=== PATIENT | female | born 1945 | race Caucasian/White ===

== ENCOUNTER → 2017-04-29 | Outpatient (CLI) | payer MEDICARE, OTHER | END | disposition home or self-care (01) | LOC: GMAM 13:12 | PROVIDERS: ATTEND Family Medicine | DX: E03.9 Hypothyroidism, unspecified (principal); I10 Essential (primary) hypertension; R12 Heartburn; K21.0 Gastro-esophageal reflux disease with esophagitis ==

== ENCOUNTER → 2017-06-15 | Outpatient (CLI) | payer MEDICARE, OTHER ==
--- NOTE | 2017-06-16 08:07 | MRI ---
EXAM DESCRIPTION: Lumbar Spine w/o Contrast CLINICAL HISTORY: LUMBOSACRAL RADICULOPATHY left-sided COMPARISON: None Available. TECHNIQUE: MRI of the lumbar spine is performed according to our usual protocol with axial and sagittal multi sequence imaging. FINDINGS: MR of the lumbar spine demonstrates multilevel advanced disc degenerative changes with modest estimated four or 5 mm of retrolisthesis at the degenerative L2-3 level and four or 5 mm of anterolisthesis at the L4-5 level. Vertebral height is maintained. Rather marked fatty endplate changes on either side of the L2-3 disc level is present. The conus is positioned at the thoracolumbar junction without intradural or intramedullary abnormalities noted. Vertebral height is maintained. The retroperitoneal and paraspinous structures are essentially normal. Disc desiccation with normal disc contours at T11-12 and T12-L1 are noted. L1-2: Disc desiccation and narrowing with broad-based moderate annular bulge and very slight retrolisthesis of L1 on L2. Mild facet arthropathy with adequate canal and modestly narrowed L1 neural foramina L2-3: Markedly degenerative disc space with endplate irregularity and disc narrowing and desiccation with at least 5 mm of retrolisthesis with annular bulge and adequate central canal but moderately compromised left lateral recess from this alignment of the spine facet disease and annular bulge. Significant narrowing of the left and right L2 neural foramina. L3-4: Disc desiccation and mild annular bulge with thecal sac lower limits of normal with left greater than right facet arthropathy and marked left and moderate right foraminal narrowing on this basis L4-5: Disc desiccation with approximately 5 mm degenerative anterolisthesis L4 on L5 with moderately severe central stenosis and advanced bilateral facet arthropathy with marked right and moderate left foraminal narrowing. L5-S1: Disc desiccation with broad-based annular bulge with mild right and moderate left facet arthropathy with adequate central canal with moderate bilateral L5 foraminal narrowing IMPRESSION: 1. Marked multilevel disc degenerative changes, most severe at L2-3 with diffuse disc desiccation and significant annular bulges at multiple levels with grade 1 anterolisthesis at L4-5 and moderate retrolisthesis at L2-3 with minimal retrolisthesis at L1-2. 2. Multifactorial moderately severe L4-5 spinal stenosis with advanced facet arthropathy and spondylolisthesis with annular bulge and right greater than left foraminal stenosis 3. Multilevel annular bulges with thecal sac adequate at the other levels with modest encroachment upon the left lateral recess at L2-3 and the right lateral recess mildly at L3-4. 4. Multiple additional areas of foraminal narrowing more prominent on the left at L3-4 and L5-S1 and bilateral at L2-3. Electronically signed by: Gavin Kline MD 06/16/2017 8:06 AM [facility]
== END | disposition home or self-care (01) ==
LOC: MRI 10:28
PROVIDERS: ATTEND Family Medicine
DX: M54.16 Radiculopathy, lumbar region (principal)

== ENCOUNTER 2017-06-26 02:10 | Emergency (ER) | payer MEDICARE, OTHER ==
[2017-06-26] MEDS ORDERED: IPRATROPIUM/ALBUTEROL 3 ML VIAL NEB ONE (02:30)
--- NOTE | 2017-06-26 02:34 | ED.PDOC ---
History of Present Illness - General Chief Complaint: Respiratory Problem Stated Complaint: cough congestion Time Seen by Provider: 06/26/17 02:31 Source: patient, RN notes reviewed, Vital Signs reviewed Exam Limitations: no limitations - History of Present Illness Comments: Patient presents to ER with c/o of cough that she has had "forever". Tonight when she coughs she feels like her throat is closing up and the phlegm gets stuck and she can't breath. Also, every time she coughs it causes her sciatic pain to shoot down her left leg. Reports she finished 10 days of an unknown antibiotic given to her by her PCP 4-5 days ago. She has also been on steroids and pain medication for her back and sciatica. Timing/Duration: constant - for at least 2 weeks Cough Quality/Degree: severe, productive cough Possible Cause: no prior episodes Improving Factors: nothing Worsening Factors: nothing Associated Symptoms: cough, shortness of breath Allergies/Adverse Reactions: Allergies NO KNOWN ALLERGY Allergy (Verified 06/26/17 02:20) Home Medications: Ambulatory Orders Multiple Vitamins W/ Minerals [Centrum Silver Adult 50+] 1 tab PO DAILY amLODIPine BESYLATE [Norvasc] 5 mg PO DAILY 01/04/14 Dexlansoprazole [Dexilant] 30 mg PO DAILY 12/03/15 Pantoprazole Tablet [Protonix] 40 mg PO DAILY #10 tab 12/08/15 Review of Systems - Review of Systems Constitutional: States: malaise. Denies: chills, fever EENTM: States: see HPI. Denies: ear pain, nose congestion Respiratory: States: see HPI, cough, short of breath. Denies: stridor, wheezing Cardiology: States: no symptoms reported Gastrointestinal/Abdominal: States: no symptoms reported Musculoskeletal: States: see HPI, back pain Skin: States: no symptoms reported Neurological: States: see HPI - sciatica. Denies: headache, numbness, paresthesia All other Systems: No Change from Baseline Past Medical History (General) - Patient Medical History Hx Seizures: No Hx Stroke: No Hx Dementia: No Hx Asthma: No Hx of COPD: No Hx Cardiac Disorders: No Hx Congestive Heart Failure: No Hx Pacemaker: No Hx Hypertension: Yes Hx Thyroid Disease: No Hx Diabetes: No Hx Gastroesophageal Reflux: Yes Hx Renal Disease: No Hx Cancer: No Hx of HIV: No Hx Hepatitis C: No Hx MRSA: No Surgical History: Hysterectomy, other - Vaccination History Hx Tetanus, Diphtheria Vaccination: No Hx Influenza Vaccination: Yes Hx Pneumococcal Vaccination: Yes - Social History Hx Tobacco Use: No Hx Alcohol Use: No Hx Substance Use: No Hx Substance Use Treatment: No Hx Depression: No Hx Physical Abuse: No Hx Emotional Abuse: No - Female History Patient is a Female of Child Bearing Age (10 -59 yrs old): No Family Medical History - Family History Father Family History: Unknown Living Status: Hx Family Hypertension: Yes Physical Exam - Physical Exam General Appearance: Agitated, Alert, Anxious, No apparent distress, Well Developed, Well Groomed, Well Hydrated, Well Nourished ENT Exam: normal ENT inspection, hearing grossly normal, pharynx normal Neck: non-tender, full range of motion, supple, normal inspection Respiratory: lungs clear, normal breath sounds, no respiratory distress, no accessory muscle use Cardiovascular/Chest: regular rate, rhythm, no gallop, no JVD, no murmur Extremity: normal inspection Neurologic: alert, normal mood/affect, oriented x 3 Skin Exam: normal color, warm/dry Comments: Vital Signs 06/26/17 02:21 Temperature 98.3 F Pulse Rate [Lt 73 arm] Respiratory 20 Rate Blood Pressure 154/89 [Lt arm] O2 Sat by Pulse 100 Oximetry Progress - Progress Progress: 06/26/17 03:30 Patient reports no change/improvement with Duoneb treatment or Robitussin AC. Will give IV steroids and Tessalon. 06/26/17 04:49 Patients pain is better after Dilaudid 0.5mg. No c/o throat hurting and tongue feels thick. Reports she was diagnosed with Strep Throat last week and wants to be sure it is gone because now her throat is really hurting. She has continued with an intermittent cough. 06/26/17 05:35 Gave Benadryl 25mg IV and coughing stopped Labs are benign/negative and CXR is normal. 06/26/17 05:49 Patient is sleeping. Awaiting son for ride home - Results/Orders Results/Orders: Laboratory Tests 06/26/17 06/26/17 06/26/17 02:40 02:40 02:40 WBC 9.5 RBC 4.36 Hgb 14.0 Hct 41.5 MCV 95.1 MCH 32.1 H MCHC 33.7 RDW 13.8 Plt Count 203 MPV 8.1 Absolute Neuts (auto) 6.20 Absolute Lymphs (auto) 2.20 Absolute Monos (auto) 0.80 Absolute Eos (auto) 0.30 Absolute Basos (auto) 0.10 Neutrophils % 64.9 Lymphocytes % 22.8 Monocytes % 8.9 Eosinophils % 2.7 Basophils % 0.7 D-Dimer, Quantitative < 230 Sodium 140 Potassium 4.2 Chloride 108 Carbon Dioxide 28 Anion Gap 8.2 L BUN 32 H Creatinine 0.89 BUN/Creatinine Ratio 36.0 H Random Glucose 110 H Serum Osmolality 286.9 Calcium 9.2 Total Bilirubin 0.3 AST 16 ALT 12 Alkaline Phosphatase 75 B-Natriuretic Peptide 7.7 Serum Total Protein 6.7 Albumin 3.8 Globulin 2.9 Albumin/Globulin Ratio 1.3 Group A Strep DNA 06/26/17 04:50 WBC RBC Hgb Hct MCV MCH MCHC RDW Plt Count MPV Absolute Neuts (auto) Absolute Lymphs (auto) Absolute Monos (auto) Absolute Eos (auto) Absolute Basos (auto) Neutrophils % Lymphocytes % Monocytes % Eosinophils % Basophils % D-Dimer, Quantitative Sodium Potassium Chloride Carbon Dioxide Anion Gap BUN Creatinine BUN/Creatinine Ratio Random Glucose Serum Osmolality Calcium Total Bilirubin AST ALT Alkaline Phosphatase B-Natriuretic Peptide Serum Total Protein Albumin Globulin Albumin/Globulin Ratio Group A Strep DNA Negative - EKG/XRAY/CT XRAY: chest - No acute cardiopulmonary abnormality per Radiologist. Departure - Departure Clinical Impression: Cough in adult patient, Sciatica of right side associated with disorder of lumbar spine Time of Disposition: 06:27 Disposition: Discharge to Home or Self Care Condition: Good Departure Forms: ED Discharge - Pt. Copy, Patient Portal Self Enrollment Instructions: DI for Cough -- Adult, DI for Sciatica Diet: resume usual diet Activity: increase activity as tolerated Referrals: Gavin Thomas MD [Primary Care Provider] - 1-2 Days Home Medications: Ambulatory Orders Multiple Vitamins W/ Minerals [Centrum Silver Adult 50+] 1 tab PO DAILY amLODIPine BESYLATE [Norvasc] 5 mg PO DAILY 01/04/14 Dexlansoprazole [Dexilant] 30 mg PO DAILY 12/03/15 Pantoprazole Tablet [Protonix] 40 mg PO DAILY #10 tab 12/08/15 Additional Instructions: Benadryl 25mg every 6 hours as needed for cough
[2017-06-26] MEDS ORDERED: guaiFENesin W/CODEINE LIQ 10 ML UD PO ONE (02:37)
[2017-06-26] MEDS ORDERED: SODIUM CHLORIDE 0.9% 1000ML 1,000 ML IVS ONE (03:25)
[2017-06-26] MEDS ORDERED: methylPREDNISolone SODIUM SUC 125 MG/2 ML VIAL IV ONE (03:30)
[2017-06-26] MEDS ORDERED: BENZONATATE PERLES 100 MG CAP PO ONE (03:31)
[2017-06-26] MEDS ORDERED: HYDROmorphone HCL INJ 2 MG/ML VIAL IV ONE (04:02)
[2017-06-26] MEDS ORDERED: diphenhydrAMINE HCL 50 MG/ML VIAL IV ONE (04:49)
--- NOTE | 2017-06-26 05:29 | RAD ---
Clinical History : Cough, SOB , MAIN Exam : PA and lateral views of the chest 06/26/2017 2:30 AM [facility] Comparisons : PA and lateral views of the chest December 08, 2015 Findings : The lungs are clear without focal consolidation or pleural effusion. The heart is normal in size. The mediastinal contours are normal in appearance. There are vascular calcifications along the aortic arch. The patient is osteopenic which limits evaluation of the thoracic spine. The ribs and shoulders are grossly normal. Limited evaluation of the upper abdomen demonstrates no gross abnormalities. Impression: No acute cardiopulmonary disease Electronically signed by: Shakir Naylor MD 06/26/2017 5:28 AM [facility]
[2017-06-26 06:44] VITALS: BP 136/91
[2017-06-26 08:44] VITALS: TEMP 98; O2SAT 94
== END 2017-06-26 08:42 | disposition home or self-care (01) ==
LOC: ER 02:10
DX: R05 Cough (principal); M51.17 Intervertebral disc disorders with radiculopathy, lumbosacral region
CPT/HCPCS: 36415; 71020; 80053; 83880; 85025; 85379; 87070; 87651; 94640; J1170; J1200; J2930; J7030; J7620

== ENCOUNTER → 2017-09-06 | Outpatient (CLI) | payer MEDICARE, OTHER ==
--- NOTE | 2017-09-06 20:45 | US ---
EXAM DESCRIPTION: Soft Tissue,Extremity: ULTRASOUND. CLINICAL HISTORY: SOFT TISSUE MASS COMPARISON: None Available. TECHNIQUE: Transcutaneous scanning: Two-dimensional and Doppler modes. FINDINGS: A mixed cystic and solid lesion is visualized in the subcutaneous tissues superior to the right AC joint. This would be consistent with a complex ganglion cyst. Nonvascular. No simple cyst. No solid mass. IMPRESSION: Probable ganglion cyst associated with arthrosis in the AC joint. Correlate with clinical findings. Electronically signed by: Manjeet Cabello MD 09/06/2017 8:44 PM [facility]
== END ==
LOC: US 14:37
PROVIDERS: ATTEND Family Medicine
DX: R22.31 Localized swelling, mass and lump, right upper limb (principal); R00.2 Palpitations

== ENCOUNTER → 2017-09-29 | Outpatient (CLI) | payer OTHER ==
--- NOTE | 2017-09-29 10:05 | RAD ---
RIGHT SHOULDER HISTORY:MASS OF SKIN COMPARISON: None FINDINGS: Three views of shoulder demonstrate anatomic bony alignment. No fracture nor dislocation is identified. Acromiohumeral interval is maintained. Glenohumeral and acromioclavicular articulations exhibit mild arthrosis. No soft tissue abnormality around the shoulder joint. No pneumothorax in visualized portion of left upper lung. IMPRESSION: No bony injury identified in right shoulder. Mild degenerative joint disease Electronically signed by: Sonny Bunch MD 09/29/2017 10:05 AM [facility]
== END ==
LOC: RAD 09:35
PROVIDERS: ATTEND Orthopaedic Surgery
DX: R22.9 Localized swelling, mass and lump, unspecified (principal)

== ENCOUNTER → 2017-10-13 | Outpatient (CLI) | payer OTHER ==
--- NOTE | 2017-10-14 07:52 | MRI ---
EXAM DESCRIPTION: MRI right shoulder CLINICAL HISTORY: Rotator cuff injury. Shoulder pain COMPARISON: None. TECHNIQUE: Multiplanar, multisequence MR images of the right shoulder FINDINGS: High-grade partial tear anterior supraspinatus tendon from the critical zone to the insertion. Osseous irregularity and edema horizontal facet greater tuberosity over approximately 1.2 cm anteroposterior. Evidence of delamination and partial retraction articular sided fibers to the mid humeral level coronal image 8. Supraspinatus muscle volume is mildly decreased with grade 1 fatty infiltration Infraspinatus tendinosis without tear. Muscle volume mildly decreased with grade 1 fatty infiltration Teres minor and subscapularis tendons are intact. Normal muscle volume with grade 1 fatty streaking Long head biceps tendon normal in the bicipital groove. Short segment intra-articular impingement tendinosis. Degenerative signal in the labrum without acute labral detachment Mild glenohumeral chondrosis. No advanced chondrosis or chronic osteochondral lesion. Physiologic joint fluid Severe arthrosis acromioclavicular joint with prominent distal clavicular osteophyte. Anterior lateral downsloping of the acromion with subacromial enthesophyte. Ganglion cyst arising superiorly out of the joint measuring 1.5 x 1.3 x 1 cm. IMPRESSION: High-grade partial articular and interstitial tear of the supraspinatus tendon with partial retraction Severe acromioclavicular osteoarthritis with slope of the acromion and subacromial enthesophyte contributing to narrowing of the subacromial space. There is a ganglion cyst arising superiorly out of the joint Electronically signed by: Gavin Stout MD 10/14/2017 7:51 AM CDT
== END ==
LOC: MRI 09:37
PROVIDERS: ATTEND Orthopaedic Surgery
DX: S43.421A Sprain of right rotator cuff capsule, initial encounter (principal); M19.011 Primary osteoarthritis, right shoulder

== ENCOUNTER → 2017-11-18 | Outpatient (CLI) | payer OTHER | LOC: GMAM 10:21 | PROVIDERS: ATTEND Family Medicine | DX: E03.9 Hypothyroidism, unspecified (principal); E55.9 Vitamin D deficiency, unspecified ==

== ENCOUNTER → 2018-06-15 | Outpatient (CLI) | payer OTHER ==
--- NOTE | 2018-06-17 23:53 | MRI ---
MRI left shoulder without contrast INDICATION: Shoulder pain limited range of motion TECHNIQUE: Noncontrast MR imaging left shoulder standard protocol FINDINGS: No bicep rupture or dislocation. Subscapularis is intact. Moderate glenohumeral osteoarthrosis with multifocal subchondral cystic change and marginal osteophytes. Moderate AC joint osteoarthrosis. There is tendinopathy and low-grade chronic partial tear of the supraspinatus and infraspinatus. No rupture or retraction. Prominent reactive cystic changes in the greater tuberosity. Diffuse labral degeneration. Generalized grade 1 and grade 2 fatty muscle atrophy. IMPRESSION: Glenohumeral osteoarthrosis with diffuse labral degeneration Chronic low-grade partial tears and tendinosis supraspinatus and infraspinatus with cystic changes of the greater tuberosity Moderate AC joint osteoarthrosis Mild subacromial and subdeltoid bursitis Mild grade 1-2 diffuse muscle atrophy/marbling Electronically signed by: Von Klein MD 06/17/2018 11:51 PM [facility]
== END ==
LOC: MRI 10:58
PROVIDERS: ATTEND Family Medicine
DX: M19.012 Primary osteoarthritis, left shoulder (principal); M75.52 Bursitis of left shoulder; M25.519 Pain in unspecified shoulder; M62.512 Muscle wasting and atrophy, not elsewhere classified, left shoulder

== ENCOUNTER → 2020-05-20 | Outpatient (CLI) | payer OTHER | LOC: GMAM 10:49 | PROVIDERS: ATTEND Family Medicine | DX: E03.9 Hypothyroidism, unspecified (principal); E55.9 Vitamin D deficiency, unspecified; I10 Essential (primary) hypertension; E11.9 Type 2 diabetes mellitus without complications ==

== ENCOUNTER → 2020-05-21 | Outpatient (CLI) | payer OTHER | LOC: GMAM 14:11 | PROVIDERS: ATTEND Family Medicine | DX: R30.0 Dysuria (principal) ==

== ENCOUNTER → 2020-05-23 | Outpatient (CLI) | payer OTHER ==
--- NOTE | 2020-05-27 09:04 | MAM ---
EXAM DESCRIPTION: Benign exam. BIRAD CATEGORY: 2 BENIGN FINDINGS. RECOMMENDATIONS: FOLLOW UP: Routine digital bilateral mammographic screening, one year interval from date Written communication explaining the IMPRESSION and follow-up, will be mailed to the patient and referring health care provider. The FINDINGS and the FOLLOW-UP plan were reviewed in person with the patient after the examination. The FINDINGS and the FOLLOW-UP plan were reviewed by Dr. Cabello during video conference with the patient after the examination. According to the [employer], yearly mammograms are recommended starting at age 40 and continuing as long as a woman is in good health. Any breast change noted on a breast self-exam should be reported promptly to the patient's healthcare provider. Breast MRI is recommended for women with an approximately 20-25% or greater lifetime risk of breast cancer, including women with a strong family history of breast or ovarian cancer and women who have been treated for Hodgkin's disease. A negative mammographic report should not delay tissue diagnosis in patients with significant clinical history or physical findings. Extremely dense breast tissue limits the sensitivity of digital mammography. : Digital Mammography. CLINICAL HISTORY: 75 years Female ANNUAL SCREENING . No complaints. No family history of breast cancer. Menarche age 12. Childbirth age 23. Hysterectomy age 49. HRT 5 or more years ago.. Lifetime risk of developing breast cancer (Tyrer-Cuzick model)(%): 3.4. COMPARISON: Bilateral screening digital 2-D mammographic examination March 2012. TECHNIQUE: Bilateral CC and MLO projection full-field images, digital tomosynthesis mammographic technique. Bilateral digital 2-D full-field MLO images. CAD available for 2-D images. FINDINGS: The breast parenchymal density pattern is: Scattered areas of fibroglandular density. No skin thickening or nipple retraction. Vascular calcifications. Solitary microcalcifications. Intramammary lymph nodes. No change from the prior study. Coarse calcifications. No interval change. No new focal, stellate mass or density, focal asymmetry , and no suspicious microcalcifications Stable mammograms compared to prior study. Taking into account, differences in mammographic technique. IMPRESSION: Benign exam. BIRAD CATEGORY: 2 BENIGN FINDINGS. RECOMMENDATIONS: FOLLOW UP: Routine digital bilateral mammographic screening, one year interval from May 2020. Written communication explaining the IMPRESSION and follow-up, will be mailed to the patient and referring health care provider. According to the [employer], yearly mammograms are recommended starting at age 40 and continuing as long as a woman is in good health. Any breast change noted on a breast self-exam should be reported promptly to the patient's healthcare provider. Breast MRI is recommended for women with an approximately 20-25% or greater lifetime risk of breast cancer, including women with a strong family history of breast or ovarian cancer and women who have been treated for Hodgkin's disease. A negative mammographic report should not delay tissue diagnosis in patients with significant clinical history or physical findings. Extremely dense breast tissue limits the sensitivity of digital mammography. Electronically signed by: Manjeet Cabello MD 05/27/2020 9:02 AM CDT
== END ==
LOC: MAMMO 09:48
PROVIDERS: ATTEND Family Medicine
DX: Z12.31 Encounter for screening mammogram for malignant neoplasm of breast (principal); I49.9 Cardiac arrhythmia, unspecified

== ENCOUNTER 2020-07-02 10:15 | Outpatient (CLI) | payer OTHER | END 2020-07-03 12:25 | disposition home or self-care (01) | LOC: INFRM 10:15 | PROVIDERS: ATTEND Family Medicine | DX: U07.1 COVID-19 (principal); I11.9 Hypertensive heart disease without heart failure; I50.9 Heart failure, unspecified; Z23 Encounter for immunization ==